=== PATIENT | female | born 1965 | race Caucasian/White ===

== ENCOUNTER 2022-06-20 10:31 | Emergency (ER) | payer MEDICAID, OTHER ==
[~2022-06-20] VITALS: Ht 157.5 cm; Wt 101.6 kg
[2022-06-20 11:22] LABS: BASOPHILS % (AUTO) 0.7 % (0.0-2.0); EOSINOPHILS % (AUTO) 1.4 % (0.0-6.0); HEMATOCRIT 39 % (33-45); HEMOGLOBIN 13.2 g/dL (11.5-14.8); LYMPHOCYTES % (AUTO) 27.3 % (20.0-44.0); MEAN CORPUSCULAR HGB CONC 34 g/dl (31.0-36.0); MEAN CORPUSCULAR VOLUME 86 fL (82-100); MONOCYTES # (AUTO) 0.5 K/uL (0.1-1.30); MONOCYTES % (AUTO) 7.2 % (2.0-12.0); NEUTROPHILS # (AUTO) 4.7 K/uL (1.8-8.9); NEUTROPHILS % (AUTO) 63.4 % (43.0-81.0); PLATELET COUNT (AUTO) 245 K/uL (150-450); RED BLOOD CELL COUNT(AUTO) 4.57 MIL/uL (4.0-5.2); WHITE BLOOD COUNT (AUTO) 7.4 K/uL (4.3-11.0)
[2022-06-20 11:32] LABS: CALCIUM, SERUM 8.5 mg/dL (8.5-10.1); CREATININE 0.7 mg/dL (0.6-1.3); POTASSIUM 3.7 mmol/L (3.5-5.1)
--- NOTE | 2022-06-20 12:10 | NUR ---
called [facility], spoke to christianne. made aware of patient being cleared and will be sent back to facility.
--- NOTE | 2022-06-20 12:13 | NUR ---
CALLED [facility] AND SET UP BLS TRANSPORT ETA [phone]
--- NOTE | 2022-06-20 13:20 | NUR ---
STOOL SAMPLE COLLECTED AND SENT TO LAB
[2022-06-20 13:45] VITALS: BP 142/82
--- NOTE | 2022-06-20 13:45 | NUR ---
REPORT GIVEN TO TRANSPORTATION, PT TRANFERRED TO FACILITY IN STABLE CONDITION.
== END 2022-06-20 14:25 ==
LOC: ER 10:40
DX: R19.7 Diarrhea, unspecified (principal); E11.9 Type 2 diabetes mellitus without complications; F20.9 Schizophrenia, unspecified
CPT/HCPCS: 36415; 80048-TC; 85025-TC